=== PATIENT | male | born 1945 ===

== ENCOUNTER 2022-11-20 00:16 | Inpatient (IN) | payer OTHER ==
[2022-11-20] VITALS (12 sets, daily range): BP systolic 115–134; BP diastolic 65–82; PULSE 66–81; RESP 16–21; TEMP 97.5–97.7; O2SAT 93–99
[~2022-11-20] VITALS: Ht 180.3 cm; Wt 91.3 kg
[2022-11-20] MEDS ORDERED: ONDANSETRON HCL 4 MG/2 ML VIAL IV PRN (03:00)
[2022-11-20] MEDS ORDERED: NITROGLYCERIN 0.4 MG SL TAB SL PRN (03:00)
[2022-11-20] MEDS ORDERED: MORPHINE SULFATE INJ 2 MG/ml SYRG IV PRN (03:00)
[2022-11-20 04:35] LABS: Basophils # (auto) 0.1 10 ^3/uL (0-0.2); Hemoglobin 14.5 g/dL (13.5-17.5); Monocytes # (auto) 0.9 10 ^3/uL (0-1.3)
[2022-11-20 04:37] LABS: Basophils % (auto) 0.7 % (0.0-2.0); Eosinophils # (auto) 0.3 10 ^3/uL (0-0.8); Eosinophils % (auto) 4.6 % (0.0-7.0); Hematocrit 42.2 % (41.0-53.0); Lymphocytes % (auto) 25.7 % (10.0-50.0); Mean Corpuscular Hemoglobin 34.2 pg (28.0-32.0); Mean Corpuscular Hgb Conc. 34.4 g/dL (32.0-36.0); Mean Corpuscular Volume 99.4 fL (80.0-100.0); Monocytes % (auto) 11.3 % (0.0-12.0); Neutrophils # (auto) 4.4 10 ^3/uL (1.6-8.6); Neutrophils % (auto) 57.7 % (37.0-80.0); Red Blood Cells 4.25 10^6/uL (4.5-5.90); White Blood Cell 7.6 10^3/uL (4.4-10.8)
[2022-11-20 04:53] LABS: Alanine Aminotransferase 23 U/L (7-40); Albumin 4.1 g/dL (3.2-4.8); Alkaline Phosphatase 42 U/L (46-116); Anion Gap 9 (5-15); Aspartate Aminotransferase 86 U/L (13-40); BUN/Creatinine Ratio 18.8 (10.0-20.0); Bilirubin, Total 0.9 mg/dL (0.2-1.0); Blood Urea Nitrogen 16 mg/dL (9-23); Calcium 8.9 mg/dL (8.5-10.1); Carbon Dioxide 22 mmol/L (20-30); Chloride 111 mmol/L (98-107); Glucose 88 mg/dL (74-106); Potassium 3.9 mmol/L (3.5-5.1); Sodium 142 mmol/L (136-145); Total Protein 6.1 g/dL (5.7-8.2)
[2022-11-20 05:20] LABS: INR 1.04 (0.9-1.15); Partial Thromboplastin Time 28.8 SEC (24.5-34.5); Prothrombin Time 10.9 sec (9.3-11.8)
[2022-11-20] MEDS: HEPARIN DRIP/D5W 100UNITS/ML 250 ML IV SCH ×3 (06:56→20:38)
[2022-11-20 08:29] LABS: Triglycerides 106 mg/dL (< 150)
[2022-11-20 08:30] LABS: LDL Cholesterol 77 mg/dL (< 100)
[2022-11-20 08:31] LABS: Cholesterol 135 mg/dL (< 200); HDL Cholesterol 43 mg/dL (40-59)
[2022-11-20] MEDS ORDERED: ASPirin-EC 325mg tab PO ONE (09:00)
[2022-11-20] MEDS ORDERED: LIDOCAINE 2%HCL (LOCAL ANESTH.) INJ 20ML MDV ONE (09:42)
[2022-11-20] MEDS ORDERED: IODIXANOL 320MG/ML 100ML BTL IV ONE ×2 (09:43→10:03)
[2022-11-20] MEDS ORDERED: HEPARIN SODIUM (PORCINE) 5000 UNITS/ML 1ML VIAL ONE (09:47)
[2022-11-20] MEDS ORDERED: fentaNYL CITRATE 100 MCG/2 ML VL ONE (09:47)
[2022-11-20] MEDS ORDERED: ANGIOMAX 250 MG VIAL IV ONE (09:47)
[2022-11-20] MEDS ORDERED: VERAPAMIL 2.5MG/ML INJ 2ML VIAL IV ONE (09:47)
[2022-11-20] MEDS ORDERED: SODIUM CHL 0.9% 0 ML ONE (09:48)
[2022-11-20] MEDS ORDERED: MIDAZOLAM HCL 2MG/2ML 2ml VIAL (1mg/ml) ONE (09:48)
[2022-11-20] MEDS ORDERED: PRAV20TA3 PO (10:02)
[2022-11-20] MEDS ORDERED: AML5T PO (10:02)
[2022-11-20] MEDS ORDERED: EZET10TA22 PO (10:02)
[2022-11-20 15:30] LABS: INR 1.07 (0.9-1.15); Partial Thromboplastin Time 41.2 SEC (24.5-34.5); Prothrombin Time 11.2 sec (9.3-11.8)
[2022-11-20 15:40] LABS: COVID19 ANTIGEN SOFIA FIA NEGATIVE (NEGATIVE)
== END 2022-11-20 20:35 | disposition short-term general hospital (02) | DRG 281 ==
LOC: TELE-EAST 02:39
PROVIDERS: ADMIT Internal Medicine; ATTEND Student in an Organized Health Care Education/Training Program
PROC: 4A023N7 Measurement of Cardiac Sampling and Pressure, Left Heart, Percutaneous Approach (ICD-10-PCS; principal; 2022-11-20)
PROC: B211YZZ Fluoroscopy of Multiple Coronary Arteries using Other Contrast (ICD-10-PCS; 2022-11-20)
PROC: B215YZZ Fluoroscopy of Left Heart using Other Contrast (ICD-10-PCS; 2022-11-20)
DX: I21.4 Non-ST elevation (NSTEMI) myocardial infarction (principal); J84.9 Interstitial pulmonary disease, unspecified; I10 Essential (primary) hypertension; E78.5 Hyperlipidemia, unspecified; I25.10 Atherosclerotic heart disease of native coronary artery without angina pectoris; Z20.822 Contact with and (suspected) exposure to COVID-19; R74.01 Elevation of levels of liver transaminase levels; I25.2 Old myocardial infarction; Z87.891 Personal history of nicotine dependence
CPT/HCPCS: 36415; 80053; 80061; 82565; 83036; 83880; 84443; 84484; 85025; 85610; 85730; 87426; 93005; 93306; 93458; 99152; G0378; J2250; Q9967